=== PATIENT | female | born 1980 | race Caucasian/White ===

== ENCOUNTER 2016-10-19 15:10 | Day surgery (SDC) | payer OTHER ==
[2016-10-19] MEDS ORDERED: EPINEPHrine/PF 1 MG/1 ML (1:1,000) AMPULE SQ ONE (16:00)
[2016-10-19] MEDS ORDERED: diphenhydrAMINE HCL 25 MG CAPSULE (FP) PO ONE (16:00)
[2016-10-19] MEDS ORDERED: methylPREDNISolone NA SUCC 40 MG/1 ML VIAL IVPB ONE (16:00)
[2016-10-19 16:15] LABS: BASOPHIL 2.4 % (0-2.0); EOSINOPHIL 1.7 % (0-4.5); MCHC 33.5 g/dl (32.0-36.0); MEAN CELL VOLUME 89.6 fl (80-96); MEAN PLT VOLUME 8.2 fl (7.5-11.1); NEUTROPHILS 49.6 % (42.8-82.8); PLATELET COUNT 687 K/MM3 (134-434); RDW 24.2 % (11.6-15.6); WHITE BLOOD COUNT 4.7 K/mm3 (4.0-10.0)
[2016-10-19] MEDS ORDERED: VEDOLIZUMAB 300 MG in SODIUM CHLORIDE 250 ML IVPB ONE (16:30)
[2016-10-19 16:52] LABS: ALBUMIN 3.8 g/dl (3.4-5.0); ALK PHOS 150 U/L (45-117); ANION GAP 13 (8-16); BILIRUBIN,TOTAL 1.1 mg/dL (0.2-1.0); C-REACTIVE PROTEIN < 0.3 MG/DL (0.00-0.3); CALCIUM 9.3 mg/dL (8.5-10.1); CO2 24 mmol/L (21-32); CREATININE 1.1 mg/dL (0.55-1.02); GLUCOSE,RANDOM 82 mg/dL (74-106); SGOT/AST 59 U/L (15-37); SGPT/ALT 176 U/L (12-78); TOT PROT 7.8 g/dl (6.4-8.2)
[2016-10-19 17:42] VITALS: BMI 25.4
[2016-10-19 18:25] VITALS: BP 113/65; PULSE 81; TEMP 97.8
[2016-10-19 19:58] LABS: PLATELET COMMENT2 NO CLOTTING DETECTED; PLATELET COMMENT3 FEW LARGE PLTS; PLATELET ESTIMATE INCREASED (NORMAL)
[2016-10-19 19:59] LABS: ANISOCYTOSIS 3+; HYPOCHROMIA 1+; MICROCYTOSIS 1+; OVALOCYTES 1+; POIKILOCYTOSIS 1+; POLYCHROMASIA 1+; SPHEROCYTE 1+
== END 2016-10-19 18:45 | disposition home or self-care (01) ==
LOC: JINFUSION 15:10 → J7W 15:16 → JINFUSION 18:45
PROVIDERS: ATTEND Internal Medicine Gastroenterology
PROC: 3E03305 Introduction of Other Antineoplastic into Peripheral Vein, Percutaneous Approach (ICD-10-PCS; principal; 2016-10-19)
PROC: 3E0337Z Introduction of Electrolytic and Water Balance Substance into Peripheral Vein, Percutaneous Approach (ICD-10-PCS; 2016-10-19)
DX: K50.00 Crohn's disease of small intestine without complications (principal)
CPT/HCPCS: 96361; 96413; J3380; 36415; 80053; 85025; 86140

== ENCOUNTER 2016-11-26 09:11 | Day surgery (SDC) | payer OTHER ==
[2016-11-26 10:25] VITALS: BMI 24.3
[2016-11-26] MEDS ORDERED: LIDOCAINE HCL/PF 1% SDV 5ML VIAL ONE (10:42)
[2016-11-26] MEDS ORDERED: PROPOFOL 20 ML ONE (10:42)
[2016-11-26 11:49] VITALS: TEMP 97.9
[2016-11-26 12:29] LABS: MCH 29.7 pg (25.7-33.7); MCHC 33.3 g/dl (32.0-36.0); MEAN CELL VOLUME 89.2 fl (80-96); MEAN PLT VOLUME 8.6 fl (7.5-11.1); PLATELET COUNT 226 K/MM3 (134-434); RDW 16.1 % (11.6-15.6); WHITE BLOOD COUNT 5.2 K/mm3 (4.0-10.0)
[2016-11-26 12:34] VITALS: BP 102/56; PULSE 72
[2016-11-26 12:51] LABS: ALBUMIN 3.4 g/dl (3.4-5.0); BILIRUBIN,DIRECT 0.3 mg/dL (0.0-0.2); TOT PROT 6.8 g/dl (6.4-8.2)
--- NOTE | 2016-11-27 12:16 | PATH ---
Surgical Pathology Report Patient Name: LETI AYALA [facility]. Rec. #: [id number] /Age/Gender: 1980 (Age: 36) / F Account: [id number] Location: ASU-ENDOSCOPY Taken: 11/26/2016 Received: 11/26/2016 Reported: 11/27/2016 Physicians: Randy Patel M.D. Specimen(s) Received A: BX POLYP TRANSVERSE COLON B: BX DESCENDING COLON C: BX SIGMOID D: RECTAL-SIGMOID E: BX RECTUM Clinical History Crohn's disease Colitis left colon (mild), pseudopolyps splenic flexure and descending colon, normal terminal ileum, polyp transverse colon, grade 2 hemorrhoids, proctitis Final Diagnosis A. COLON, TRANSVERSE, POLYP, POLYPECTOMY: CONSISTENT WITH INFLAMMATORY/POSTINFLAMMATORY-TYPE POLYP. NO EVIDENCE OF GRANULOMATA OR DYSPLASIA. B. COLON, DESCENDING, BIOPSY: CONSISTENT WITH INFLAMMATORY/POSTINFLAMMATORY-TYPE POLYPS. NO EVIDENCE OF GRANULOMATA OR DYSPLASIA. C. COLON, SIGMOID, BIOPSY: COLONIC MUCOSA WITH ACTIVE MILD CHRONIC COLITIS WITH FOCAL CRYPTITIS AND MILD CRYPT ALTERATION. NO EVIDENCE OF GRANULOMATA OR DYSPLASIA. D. COLON, RECTOSIGMOID, BIOPSY: COLONIC MUCOSA WITH FOCALLY ACTIVE MILD CHRONIC COLITIS WITH REACTIVE LYMPHOID AGGREGATES AND FOCAL MILD CRYPT ALTERATION. NO EVIDENCE OF GRANULOMATA OR DYSPLASIA. E. RECTUM, BIOPSY: RECTAL MUCOSA WITH FOCALLY ACTIVE MILD CHRONIC PROCTITIS WITH FOCAL MILD CRYPT ALTERATION. NO EVIDENCE OF GRANULOMATA OR DYSPLASIA. Electronically Signed Sundeep Tate M.D. Gross Description A. Received in formalin, labeled "polyp transverse colon" is a de leon, irregular portion of soft tissue measuring 0.2 cm in greatest dimension. The specimen is submitted in toto in one cassette. B. Received in formalin, labeled "biopsy descending colon" are 3 de leon, irregular portions of soft tissue ranging from 0.1-0.2 cm in greatest dimension. The specimens are submitted in toto in one cassette. C. Received in formalin, labeled "biopsy sigmoid colon" are 3 de leon, irregular portions of soft tissue ranging from 0.1-0.4 cm in greatest dimension. The specimens are submitted in toto in one cassette. D. Received in formalin, labeled "biopsy rectal sigmoid" are 3 de leon, irregular portions of soft tissue ranging from 0.1-0.4 cm in greatest dimension. The specimens are submitted in toto in one cassette. E. Received in formalin, labeled "biopsy rectum" is a de leon, irregular portion of soft tissue measuring 0.4 cm in greatest dimension. The specimen is submitted in toto in one cassette. 11/26/201611/26/2016
== END 2016-11-26 12:35 | disposition home or self-care (01) ==
LOC: JASU-ENDO 09:11 → JOR 09:11 → JASU-ENDO 12:35
PROVIDERS: ATTEND Internal Medicine Gastroenterology
PROC: 0DBG8ZX Excision of Left Large Intestine, Via Natural or Artificial Opening Endoscopic, Diagnostic (ICD-10-PCS; 2016-11-26)
PROC: 0DBL8ZX Excision of Transverse Colon, Via Natural or Artificial Opening Endoscopic, Diagnostic (ICD-10-PCS; principal; 2016-11-26 10:00)
DX: K51.50 Left sided colitis without complications (principal); D12.3 Benign neoplasm of transverse colon; K64.4 Residual hemorrhoidal skin tags
CPT/HCPCS: 36415; 80076; 84703; 85027; 88305-TC

== ENCOUNTER 2016-12-15 10:46 | Day surgery (SDC) | payer OTHER ==
[2016-12-15] MEDS ORDERED: EPINEPHrine/PF 1 MG/1 ML (1:1,000) AMPULE SQ ONE (11:30)
[2016-12-15 11:46] LABS: BASOPHIL 0.9 % (0-2.0); EOSINOPHIL 1.8 % (0-4.5); MCH 28.9 pg (25.7-33.7); MCHC 32.6 g/dl (32.0-36.0); MEAN CELL VOLUME 88.6 fl (80-96); MEAN PLT VOLUME 8.4 fl (7.5-11.1); NEUTROPHILS 60.9 % (42.8-82.8); PLATELET COUNT 239 K/MM3 (134-434); RDW 14.6 % (11.6-15.6); WHITE BLOOD COUNT 7.1 K/mm3 (4.0-10.0)
[2016-12-15] MEDS ORDERED: diphenhydrAMINE HCL 25 MG CAPSULE (FP) PO ONE (12:00)
[2016-12-15] MEDS ORDERED: VEDOLIZUMAB 300 MG in SODIUM CHLORIDE 250 ML IVPB ONE (12:00)
[2016-12-15] MEDS ORDERED: methylPREDNISolone NA SUCC 40 MG/1 ML VIAL IVPB ONE (12:00)
[2016-12-15 12:05] LABS: ALBUMIN 3.7 g/dl (3.4-5.0); ALK PHOS 107 U/L (45-117); ANION GAP 10 (8-16); BILIRUBIN,TOTAL 0.8 mg/dL (0.2-1.0); CALCIUM 8.9 mg/dL (8.5-10.1); CO2 25 mmol/L (21-32); CREATININE 0.9 mg/dL (0.55-1.02); GLUCOSE,RANDOM 81 mg/dL (74-106); SGOT/AST 14 U/L (15-37); SGPT/ALT 18 U/L (12-78); TOT PROT 7.5 g/dl (6.4-8.2)
[2016-12-15 16:29] VITALS: BP 128/66; PULSE 86; TEMP 98.3
== END 2016-12-15 14:22 | disposition home or self-care (01) ==
LOC: JCHEMO 10:46 → J7W 10:46 → JCHEMO 14:22
PROVIDERS: ATTEND Internal Medicine Gastroenterology
DX: K50.90 Crohn's disease, unspecified, without complications (principal)
CPT/HCPCS: 96413; J3380; 36415; 80053; 85025; 86140

== ENCOUNTER 2017-02-09 11:10 | Day surgery (SDC) | payer OTHER ==
[2017-02-09 11:46] LABS: BASOPHIL 0.9 % (0-2.0); EOSINOPHIL 6.4 % (0-4.5); MCH 26.7 pg (25.7-33.7); MCHC 32.8 g/dl (32.0-36.0); MEAN CELL VOLUME 81.3 fl (80-96); MEAN PLT VOLUME 7.7 fl (7.5-11.1); NEUTROPHILS 64.5 % (42.8-82.8); PLATELET COUNT 340 K/MM3 (134-434); RDW 13.5 % (11.6-15.6); WHITE BLOOD COUNT 9.6 K/mm3 (4.0-10.0)
[2017-02-09 12:12] LABS: ALBUMIN 3.3 g/dl (3.4-5.0); ANION GAP 9 (8-16); C-REACTIVE PROTEIN 4.1 MG/DL (0.00-0.3); CALCIUM 8.7 mg/dL (8.5-10.1); CO2 28 mmol/L (21-32); CREATININE 0.9 mg/dL (0.55-1.02); GLUCOSE,RANDOM 80 mg/dL (74-106); SGOT/AST 14 U/L (15-37); SGPT/ALT 17 U/L (12-78)
[2017-02-09 12:14] LABS: ALK PHOS 84 U/L (45-117); BILIRUBIN,TOTAL 0.7 mg/dL (0.2-1.0)
[2017-02-09] MEDS ORDERED: methylPREDNISolone NA SUCC 40 MG/1 ML VIAL IVPB ONE (13:00)
[2017-02-09] MEDS ORDERED: EPINEPHrine 1:1,000 1 MG/1 ML - 30ML VIAL (INJECTION) SQ ONE (13:00)
[2017-02-09] MEDS ORDERED: diphenhydrAMINE HCL 25 MG CAPSULE (FP) PO ONE (13:15)
[2017-02-09 13:19] VITALS: BP 133/82; PULSE 93; TEMP 98.1
[2017-02-09] MEDS ORDERED: VEDOLIZUMAB 300 MG in SODIUM CHLORIDE 250 ML IVPB ONE (13:30)
== END 2017-02-09 16:02 | disposition home or self-care (01) ==
LOC: JINFUSION 11:10 → J7W 11:15 → JINFUSION 16:02
PROVIDERS: ATTEND Internal Medicine Gastroenterology
DX: M50.90 Cervical disc disorder, unspecified, unspecified cervical region (principal)
CPT/HCPCS: 36415; 80053; 85025; 86140; 96365; J3380

== ENCOUNTER 2017-03-09 10:52 | Day surgery (SDC) | payer OTHER ==
[2017-03-09 11:52] LABS: BASOPHIL 0.1 % (0-2.0); EOSINOPHIL 0.5 % (0-4.5); MCH 26.7 pg (25.7-33.7); MCHC 32.6 g/dl (32.0-36.0); MEAN PLT VOLUME 7.5 fl (7.5-11.1); NEUTROPHILS 74.8 % (42.8-82.8); PLATELET COUNT 326 K/MM3 (134-434); RDW 16.4 % (11.6-15.6); WHITE BLOOD COUNT 10.7 K/mm3 (4.0-10.0)
[2017-03-09] MEDS ORDERED: diphenhydrAMINE HCL 25 MG CAPSULE (FP) PO ONE (12:00)
[2017-03-09] MEDS ORDERED: EPINEPHrine 1:1,000 1 MG/1 ML - 30ML VIAL (INJECTION) SQ ONE (12:00)
[2017-03-09] MEDS ORDERED: methylPREDNISolone NA SUCC 40 MG/1 ML VIAL IVPB ONE (12:00)
[2017-03-09 12:15] LABS: ALK PHOS 84 U/L (45-117); ANION GAP 9 (8-16); BILIRUBIN,TOTAL 0.7 mg/dL (0.2-1.0); C-REACTIVE PROTEIN 1.7 MG/DL (0.00-0.3); CALCIUM 8.7 mg/dL (8.5-10.1); CO2 30 mmol/L (21-32); GLUCOSE,RANDOM 131 mg/dL (74-106); SGOT/AST 9 U/L (15-37); SGPT/ALT 20 U/L (12-78); TOT PROT 6.9 g/dl (6.4-8.2)
[2017-03-09] MEDS ORDERED: VEDOLIZUMAB 300 MG in SODIUM CHLORIDE 250 ML IVPB ONE (12:30)
[2017-03-09 13:30] VITALS: TEMP 98.3
[2017-03-09 16:32] VITALS: BP 119/74; PULSE 65
== END 2017-03-09 16:32 | disposition home or self-care (01) ==
LOC: JINFUSION 10:52 → J7W 11:10 → JINFUSION 16:32
PROVIDERS: ATTEND Internal Medicine Gastroenterology
DX: K50.011 Crohn's disease of small intestine with rectal bleeding (principal)
CPT/HCPCS: 36415; 80053; 85025; 86140; 96365; 96366; 96413; 96415; J3380

== ENCOUNTER 2017-04-09 16:19 | Day surgery (SDC) | payer OTHER ==
[~2017-04-09 16:19] MED LIST: EPINEPHrine 1:1,000 1 MG/1 ML - 30ML VIAL (INJECTION) IVPUSH ONE; VEDOLIZUMAB 300 MG in SODIUM CHLORIDE 250 ML IVPB ONE; diphenhydrAMINE HCL 25 MG CAPSULE (FP) PO ONE; methylPREDNISolone NA SUCC 40 MG/1 ML VIAL IVPUSH ONE
[2017-04-09 17:07] VITALS: TEMP 98.3
[2017-04-09 17:55] LABS: BASOPHIL 0.1 % (0-2.0); EOSINOPHIL 0.2 % (0-4.5); MCH 26.5 pg (25.7-33.7); MCHC 32.2 g/dl (32.0-36.0); MEAN CELL VOLUME 82.2 fl (80-96); MEAN PLT VOLUME 7.1 fl (7.5-11.1); NEUTROPHILS 74.3 % (42.8-82.8); PLATELET COUNT 550 K/MM3 (134-434); RDW 17.8 % (11.6-15.6); WHITE BLOOD COUNT 9.3 K/mm3 (4.0-10.0)
[2017-04-09 18:21] LABS: ALBUMIN 2.9 g/dl (3.4-5.0); ALK PHOS 95 U/L (45-117); ANION GAP 8 (8-16); BILIRUBIN,TOTAL 0.5 mg/dL (0.2-1.0); C-REACTIVE PROTEIN 2.8 MG/DL (0.00-0.3); CALCIUM 8.8 mg/dL (8.5-10.1); CO2 29 mmol/L (21-32); CREATININE 0.7 mg/dL (0.55-1.02); GLUCOSE,RANDOM 114 mg/dL (74-106); SGOT/AST 15 U/L (15-37); SGPT/ALT 30 U/L (12-78); TOT PROT 7.3 g/dl (6.4-8.2)
[2017-04-09 19:16] VITALS: BP 104/68; PULSE 80
== END 2017-04-09 19:21 | disposition home or self-care (01) ==
LOC: JCHEMO 16:19 → J7W 16:20 → JCHEMO 19:21
PROVIDERS: ATTEND Internal Medicine Gastroenterology
PROC: 3E033GC Introduction of Other Therapeutic Substance into Peripheral Vein, Percutaneous Approach (ICD-10-PCS; principal; 2017-04-09)
DX: K50.011 Crohn's disease of small intestine with rectal bleeding (principal)
CPT/HCPCS: 36415; 80053; 85025; 86140; 96413; 96417; J3380

== ENCOUNTER 2017-06-05 16:19 | Day surgery (SDC) | payer OTHER ==
[2017-06-05] MEDS ORDERED: diphenhydrAMINE HCL 25 MG CAPSULE (FP) PO ONE (17:15)
[2017-06-05 17:16] LABS: BASOPHIL 0.9 % (0-2.0); EOSINOPHIL 1.1 % (0-4.5); MCH 28.6 pg (25.7-33.7); MCHC 33.1 g/dl (32.0-36.0); MEAN CELL VOLUME 86.5 fl (80-96); MEAN PLT VOLUME 8.3 fl (7.5-11.1); NEUTROPHILS 64.9 % (42.8-82.8); PLATELET COUNT 350 K/MM3 (134-434); RDW 16.4 % (11.6-15.6); WHITE BLOOD COUNT 8.6 K/mm3 (4.0-10.0)
[2017-06-05] MEDS ORDERED: USTEKINUMAB IVPB ONE (17:30)
[2017-06-05] MEDS ORDERED: SODIUM CHLORIDE IVPB ONE (17:30)
[2017-06-05 17:38] LABS: ALBUMIN 3.6 g/dl (3.4-5.0); ALK PHOS 78 U/L (45-117); ANION GAP 9 (8-16); BILIRUBIN,TOTAL 0.5 mg/dL (0.2-1.0); C-REACTIVE PROTEIN 1.2 MG/DL (0.00-0.3); CALCIUM 8.7 mg/dL (8.5-10.1); CO2 25 mmol/L (21-32); CREATININE 0.9 mg/dL (0.55-1.02); GLUCOSE,RANDOM 98 mg/dL (74-106); SGOT/AST 14 U/L (15-37); SGPT/ALT 16 U/L (12-78); TOT PROT 7.1 g/dl (6.4-8.2)
[2017-06-05 19:10] VITALS: BP 110/71; PULSE 80
[2017-06-05 19:17] VITALS: TEMP 98.3
== END 2017-06-05 21:32 | disposition home or self-care (01) ==
LOC: JCHEMO 16:19 → J7W 16:24 → JCHEMO 21:32
PROVIDERS: ATTEND Internal Medicine Gastroenterology
DX: K50.90 Crohn's disease, unspecified, without complications (principal)
CPT/HCPCS: 36415; 80053; 85025; 86140; 96365; 96413

== ENCOUNTER 2018-01-08 13:09 | Emergency (ER) | payer OTHER ==
[2018-01-08 13:22] VITALS: BP 132/80; PULSE 82; TEMP 97.8; BMI 24.4
--- NOTE | 2018-01-08 14:47 | PDOC ---
History of Present Illness - General Chief Complaint: Edema Stated Complaint: SWOLLEN RT LEG History Source: Patient Exam Limitations: No Limitations - History of Present Illness Initial Comments: 01/08/18 14:57 This 37 yr old female who has a hx of ulcerative colitis. She had a DVT over a year ago on Eliquist and now off for almost 6 month says she now has right calf pain and thinks there is some swelling there since this morning. She is concerned that this is a DVT and came in for evaluation. Past History - Past Medical History Allergies/Adverse Reactions: Allergies Allergy/AdvReac Type Severity Reaction Status Date / Time No Known Allergies Allergy Verified 01/08/18 13:22 Home Medications: Ambulatory Orders Vedolizumab [Entyvio] 300 mg IVPB ASDIR 09/11/16 Multivitamin with Minerals [Icaps Plus] 1 each PO DAILY 11/26/16 Apixaban [Eliquis] 2.5 mg PO BID 04/09/17 Anemia: Yes Asthma: No Cancer: Yes (BASAL CELL CARCINOMA) Cardiac Disorders: No CVA: No COPD: No CHF: No DVT: Yes (05/16/2016) Dementia: No Diabetes: No GI Disorders: Yes (ULCERATIVE COLITIS) Disorders: No HTN: No Hypercholesterolemia: No Liver Disease: No Seizures: No Thyroid Disease: No - Surgical History Abdominal Surgery: No Appendectomy: No Cardiac Surgery: No Cholecystectomy: No Lung Surgery: No Neurologic Surgery: No Orthopedic Surgery: No - Immunization History Immunization Up to Date: Yes - Suicide/Smoking/Psychosocial Hx Smoking History: Never smoked Have you smoked in the past 12 months: No Information on smoking cessation initiated: No Hx Alcohol Use: No Drug/Substance Use Hx: No Substance Use Type: None Hx Substance Use Treatment: No Review of Systems - Review of Systems Able to Perform ROS?: Yes Comments:: 01/08/18 15:11 General statement: This 37 yr with c/o right side leg pain Hematology: neg history of bleeding but with hx of dvt off eliquest now Skin: Neg for lesions, rash, bruising. HEENT: Neg symptoms Respiratory: Neg SOB or difficulty in breathing Cardiac: Neg chest pain GI: Neg pain, n/v : Neg problems on voiding MS: Neg for joint pain/stiffness, no edema Neuro: Neg for LOC, weakness, Endocrine: Neg for excess thirst/hunger, cold/heat intolerance, excess sweating Allergies: Neg for allergies *Physical Exam - Vital Signs Last Vital Signs Temp Pulse Resp BP Pulse Ox 97.8 F 82 16 132/80 100 01/08/18 13:19 01/08/18 13:19 01/08/18 13:19 01/08/18 13:19 01/08/18 13:19 - Physical Exam Comments: 01/08/18 15:12 General Appearance: This well appearing 37 yr V/S: hemodynamically stable, afebrile Skin: WNL of pt's skin color, no signs of pallor, mottling, cyanosis Head:symmetrical Eyes: EOM's intact, PERRLA Ears: denies pain Nose: patent Throat: lips, teeth, gums, tongue, buccal mucos pink and moist Lungs: Chest symmetry equal. Cap refill <3 seconds. Lung sounds clear Cardiac: PMI at R 4MCL space, pos S1 and S2, regular rate. Abdomen: Soft, round, nontender : Not observed Muscularskeletal: Gait steady, ambulated in to ER, no edema seen but pt states it is with neg chey sign or pain on palpation, +PMS Neuro: AAOx3, cognitively intact, speech clear and appropriate. Medical Decision Making - Medical Decision Making 01/08/18 15:13 A/P: 37 yr old with right calf pain ro DVT -ua -hcg -duplex right leg 01/08/18 16:14 neg duplex *DC/Admit/Observation/Transfer Diagnosis at time of Disposition: Calf pain Qualifiers: Laterality: right Qualified Code(s): M79.661 - Pain in right lower leg - Discharge Dispostion Disposition: HOME Condition at time of disposition: Good Admit: No - Referrals - Patient Instructions Printed Discharge Instructions: DI for Calf Muscle Strain Additional Instructions: Discharge instructions 1. Please follow up with your primary physician within the next few days and explain that you have been seen here in the Emergency Room. 2. If you experience any worsening of symptoms, please return to the ER 3. Rest, ice for any swelling. 4. Drink plenty of water - Post Discharge Activity Forms/Work/School Notes: Back to Work
[2018-01-08 15:49] LABS: HCG,QUALITATIVE URINE NEGATIVE
[2018-01-08 15:54] LABS: URINE APPEARANCE SLCLOUDY; URINE BILIRUBIN NEGATIVE (<2.0 mg/dL); URINE BLOOD 1+ (NEGATIVE); URINE COLOR STRAW; URINE GLUCOSE (UA) NEGATIVE (NEGATIVE); URINE KETONE NEGATIVE (NEGATIVE); URINE LEUK ESTERASE NEGATIVE (NEGATIVE); URINE NITRITE NEGATIVE (NEGATIVE); URINE PROTEIN NEGATIVE (NEGATIVE); URINE UROBILINOGEN NEGATIVE mg/dL (0.2-1.0)
[2018-01-08 16:33] LABS: EPI CELLS FEW /HPF (FEW); URINE BACTERIA RARE /hpf (NONE SEEN)
== END 2018-01-08 16:30 | disposition home or self-care (01) ==
LOC: JER 13:09
DX: M79.661 Pain in right lower leg (principal)
CPT/HCPCS: 81003; 81015; 84703; 93971-TC; 99281-25